=== PATIENT | female | born 1950 | race Caucasian/White ===

== ENCOUNTER 2016-07-30 17:31 | Outpatient (CLI) | payer OTHER, MEDICARE ==
[2016-07-30] MEDS ORDERED: IOPAMIDOL-300 50 ML VIAL PO ONE (18:54)
[2016-07-30] MEDS ORDERED: IOPAMIDOL-300 100 ML VIAL IVP ONE (18:54)
== END 2016-07-30 17:32 | disposition home or self-care (01) ==
DX: D35.02 Benign neoplasm of left adrenal gland (principal); N13.30 Unspecified hydronephrosis; N20.0 Calculus of kidney; K76.89 Other specified diseases of liver; K57.30 Diverticulosis of large intestine without perforation or abscess without bleeding; N32.89 Other specified disorders of bladder
CPT/HCPCS: 74177; Q9967

== ENCOUNTER 2016-12-10 08:00 | Outpatient (CLI) | payer OTHER, MEDICARE | END 2016-12-10 08:01 | disposition home or self-care (01) | LOC: LAB.R 08:00 | PROVIDERS: ATTEND Physician Assistant Medical | DX: R31.9 Hematuria, unspecified (principal) | CPT/HCPCS: 87086 ==

== ENCOUNTER 2016-12-13 09:27 | Outpatient (CLI) | payer OTHER, MEDICARE ==
--- NOTE | 2016-12-13 11:03 | XRAY Report ---
TWO-VIEW LUMBAR SPINE: 12/13/2016 CLINICAL INDICATION: Right hip pain, sciatica. FINDINGS: Frontal and lateral views of the lumbar spine demonstrate mild degenerative disc and facet disease. There is no evidence of compression fracture. Minimal levoscoliosis is present, likely de generative in etiology. IMPRESSION: MILD DEGENERATIVE CHANGES, WITH MINIMAL LEVOSCOLIOSIS. JOB #: [id number] EXT JOB #:[id number]
--- NOTE | 2016-12-13 11:05 | XRAY Report ---
RIGHT HIP AND PELVIS: 12/13/2016 CLINICAL INDICATION: Right hip pain. FINDINGS: Frontal view of the hips and pelvis and frogleg lateral view of the right hip demonstrate mild osteoarthritis. There is no evidence of fracture or dislocation. No radiopaque foreign body is seen in the soft tissues. IMPRESSION: MILD RIGHT HIP OSTEOARTHRITIS. JOB #: [id number] EXT JOB #:[id number]
== END 2016-12-13 09:28 | disposition home or self-care (01) ==
LOC: DI 09:27
PROVIDERS: ATTEND Physician Assistant Medical
DX: M51.36 Other intervertebral disc degeneration, lumbar region (principal); M47.896 Other spondylosis, lumbar region; M41.86 Other forms of scoliosis, lumbar region; M16.11 Unilateral primary osteoarthritis, right hip
CPT/HCPCS: 72100

== ENCOUNTER 2017-07-01 10:20 | Outpatient (CLI) | payer OTHER, MEDICARE | END 2017-07-01 10:21 | disposition home or self-care (01) | LOC: LAB.R 10:20 | PROVIDERS: ATTEND Physician Assistant Medical | DX: N39.0 Urinary tract infection, site not specified (principal) | CPT/HCPCS: 87086 ==

== ENCOUNTER 2018-03-23 13:45 | Outpatient (CLI) | payer OTHER, MEDICARE ==
[2018-03-23 18:58] LABS: BASOPHILS % (AUTO) 0.5 %; EOSINOPHILS % (AUTO) 0.7 %; HGB - HEMOGLOBIN 13.3 g/dL (12.0-16.0); LYMPHOCYTES # (AUTO) 1.6 10^3/uL (1.5-3.5); LYMPHOCYTES % (AUTO) 21.9 %; MEAN CORPUSCULAR HEMOGLOBIN 28.2 pg (27.0-31.0); MEAN CORPUSCULAR HGB CONC 33.3 g/dL (32.0-36.0); MEAN CORPUSCULAR VOLUME 84.7 fL (81.0-99.0); MEAN PLATELET VOLUME 8.1 fL (7.9-10.8); MONOCYTES # (AUTO) 0.5 10^3/uL (0.0-1.0); MONOCYTES % (AUTO) 7.7 %; NEUTROPHILS % (AUTO) 69.2 %; PLT - PLATELET COUNT 302 10^3/uL (130-450); RED BLOOD COUNT 4.69 10^6/uL (4.20-5.40); RED CELL DISTRIBUTION WIDTH 13.4 % (12.0-15.0); WHITE BLOOD COUNT 7.1 x10^3/uL (4.8-10.8)
[2018-03-23 19:17] LABS: ALBUMIN/GLOBULIN RATIO 1.3 (1.0-2.2); ALKALINE PHOSPHATASE 60 IU/L (42-121); ALT ALANINE AMINOTRANSFERASE 12 IU/L (10-60); AST ASPARTATE AMINOTRANSFERASE 18 IU/L (10-42); BILIRUBIN,TOTAL 0.5 mg/dL (0.2-1.0); BUN - BLOOD UREA NITROGEN 11 mg/dL (6-20); CARBON DIOXIDE - CO2 27 mmol/L (21-32); CHLORIDE 105 mmol/L (101-111); CHOL/HDL RATIO 2.5 (<4.4); CHOLESTEROL 159 mg/dL; CREATININE 0.6 mg/dL (0.4-1.0); GFR - MDRD 100 (>89); GLUCOSE 96 mg/dL (70-100); HDL CHOLESTEROL 64 mg/dL; LDL CHOLESTEROL,CALCULATED 79 mg/dL; LDL/HDL RATIO 1.2 (<4.4); SODIUM 141 mmol/L (135-145); TOTAL PROTEIN 7.1 g/dL (6.7-8.2); VLDL CHOLESTEROL 16 mg/dL
== END 2018-03-23 13:46 | disposition home or self-care (01) ==
LOC: LAB.WCP 13:45
PROVIDERS: ATTEND Physician Assistant Medical
DX: Z00.00 Encounter for general adult medical examination without abnormal findings (principal)
CPT/HCPCS: 36415; 80053; 80061; 83721; 84443; 85025

== ENCOUNTER 2019-03-05 07:50 | Outpatient (CLI) | payer OTHER, MEDICARE ==
--- NOTE | 2019-03-08 15:44 | Mammography Report ---
Reason: SCREENING MAMMO Procedure Date: 03/05/2019 Accession Number: [id number] / [id number] Procedure: CARLA - Screening Mammo w/Arturo CPT Code: FULL RESULT: EXAM: Screening Mammo w/Arturo DATE: 03/05/2019 8:40 AM CLINICAL HISTORY: Routine screening TECHNIQUE: (B) - Bilateral CC and MLO views were obtained. COMPARISON: 01/19/2016, 10/04/2014, 02/02/2014 and 05/12/2013 PARENCHYMAL PATTERN: (D) - The breasts demonstrate heterogeneously dense fibroglandular parenchyma bilaterally. FINDINGS: No significant interval change. There are no suspicious masses, calcifications, or areas of distortion. Scattered benign-appearing calcifications are stable. IMPRESSION: Negative examination. BI-RADS category 1. RECOMMENDATION: (ANNUAL) - Recommend routine annual screening mammography. BI-RADS CATEGORY: (1) - Negative. STANDARD QUALIFYING STATEMENTS: 1. This examination was not reviewed with the aid of Computer-Aided Detection (CAD). 2. A negative or benign imaging report should not preclude biopsy if clinically suspicious findings are present. 3. Dense breasts may obscure an underlying neoplasm. 4. This examination was reviewed with the aid of 3D breast imaging (tomosynthesis).
== END 2019-03-05 07:51 | disposition home or self-care (01) ==
LOC: DI 07:50
DX: Z12.31 Encounter for screening mammogram for malignant neoplasm of breast (principal)
CPT/HCPCS: 77063; 77067

== ENCOUNTER 2019-03-05 07:52 | Outpatient (CLI) | payer OTHER, MEDICARE ==
--- NOTE | 2019-03-08 11:43 | DEXA Report ---
Reason: POSTMENOPAUSAL STATUS Procedure Date: 03/05/2019 Accession Number: [id number] / [id number] Procedure: DEX - Dexa Spine and/or Hip CPT Code: FULL RESULT: EXAM: Dexa Spine and/or Hip DATE: 03/05/2019 9:02 AM CLINICAL HISTORY: POSTMENOPAUSAL STATUS. Follow-up osteopenia. TECHNIQUE: Dual energy x-ray absorptiometry (DXA) was performed on a [employer] System. Regions measured are the AP Spine, femoral neck, and if needed forearm. COMPARISON: 10/23/2015. In accordance with the International Society for Clinical Densitometry (ISCD) guidelines, data from previous exams may be reanalyzed using current recommendations and techniques. This is done to allow a more accurate basis for comparison with the current study. FINDINGS: The data for the lumbar spine is as follows: BMD (g/cm/cm) T-SCORE Z-SCORE REGION L1 0.942 -1.6 -0.5 L2 0.977 -1.9 -0.9 L3 0.941 -2.2 -1.2 L4 1.025 -1.5 -0.5 TOTAL 0.974 -1.7 -0.7 NOTE: All evaluable vertebrae are used for classification The data for the hip is as follows: BMD (g/cm/cm) T-SCORE Z-SCORE REGION Neck 0.724 -2.3 -1.6 TOTAL 0.799 -1.7 -1.3 NOTE: The femoral neck or total proximal femur, whichever is lowest, is used for classification. IMPRESSION: THE WHO CLASSIFICATION BASED ON THE INTERNATIONAL REFERENCE STANDARD IS OSTEOPENIA, REFERENCE LEFT FEMORAL NECK. THE FRACTURE RISK IS INCREASED. RECOMMENDATION: Patients with diagnosis of osteoporosis or osteopenia should have regular bone mineral density assessment. For those eligible for Medicare, routine testing is allowed once every 2 years. Testing frequency can be increased for patients who have rapidly progressing disease or for those who are receiving medical therapy to restore bone mass. COMMENT: World Health Organization (WHO) definitions for osteoporosis and osteopenia: NORMAL BMD: T-score at -1.0 or higher, fracture risk is low OSTEOPENIA BMD: T-score between -1.0 and -2.5, fracture risk is increased. OSTEOPOROSIS BMD: T-score at -2.5 or lower, fracture risk is high. National Osteoporosis Foundation recommends: 1. Obtain adequate dietary calcium (at least 1200 mg per day) and vitamin D (400-800 international units per day). 2. Participate, as appropriate, in regular weightbearing and muscle-strengthening exercise. 3. Avoid tobacco use and reduce alcohol and caffeine intake. 4. For more detailed information see the website at www.NOF.org.
== END 2019-03-05 07:53 | disposition home or self-care (01) ==
LOC: DI 07:52
PROVIDERS: ATTEND Physician Assistant Medical
DX: M85.89 Other specified disorders of bone density and structure, multiple sites (principal)
CPT/HCPCS: 77080

== ENCOUNTER 2019-05-01 07:14 | Outpatient (CLI) | payer OTHER, MEDICARE ==
--- NOTE | 2019-05-02 04:44 | Ultrasound Report ---
Reason: ABDOMINAL PAIN Procedure Date: 05/01/2019 Accession Number: [id number] / [id number] Procedure: US - Aorta Screening CPT Code: Final Report FULL RESULT: EXAM: AORTIC DOPPLER ULTRASOUND EXAM DATE: 05/01/2019 08:05 AM. CLINICAL HISTORY: Generalized abdominal pain since March 2019. COMPARISON: ABDOMEN/PELVIS W/ 07/30/2016 6:37 PM. TECHNIQUE: Real-time sonographic imaging of retroperitoneal vascular structures, including color-flow, Doppler flow and spectral analysis was performed by the process control manager. Multiple client representative static images were saved for review. FINDINGS: Aorta: There is calcific atherosclerosis cyst at the origin of the superior mesenteric artery. Distal abdominal aortic calcific atherosclerosis. Aorta is normal in caliber. Proximal aorta measures 2.6 cm, midportion of the aorta measures 1.9 cm, and the distal portion of the aorta measures 1.5 cm in diameter. Iliac Vessels: Bilateral common iliac arteries are normal in caliber, measuring 9 mm. There is mild to moderate calcific atherosclerosis of the common iliacs. Other: None. IMPRESSION: 1. No aortic aneurysm. 2. Mild to moderate calcific atherosclerosis. RADIA
== END 2019-05-01 07:15 | disposition home or self-care (01) ==
LOC: DI 07:14
PROVIDERS: ATTEND Nurse Practitioner Gerontology
DX: R10.9 Unspecified abdominal pain (principal); I70.8 Atherosclerosis of other arteries
CPT/HCPCS: 76706

== ENCOUNTER 2019-06-16 14:36 | Outpatient (CLI) | payer OTHER, MEDICARE ==
[2019-06-16] MEDS ORDERED: IOVERSOL 320 50 ML VIAL ONE (14:39)
[2019-06-16] MEDS ORDERED: IOVERSOL 320 100 ML VIAL IVP ONE ×2 (14:39→18:37)
[2019-06-16 15:17] LABS: CREATININE 0.8 mg/dL (0.4-1.0)
[2019-06-16] MEDS ORDERED: IOVERSOL 320 50 ML VIAL PO ONE (18:37)
--- NOTE | 2019-06-19 10:41 | CT Report ---
Reason: CONSTIPATION DUE TO SLOW TRANSIT, WEIGHT LOSS Procedure Date: 06/16/2019 Accession Number: [id number] / [id number] Procedure: CT - Abdomen/Pelvis W CPT Code: Final Report FULL RESULT: EXAM: CT ABDOMEN AND PELVIS EXAM DATE: 06/16/2019 03:48 PM HISTORY: CONSTIPATION DUE TO SLOW TRANSIT, WEIGHT LOSS COMPARISON: ABDOMEN/PELVIS W/ 07/30/2016 6:37 PM TECHNIQUE: Routine helical CT imaging was performed through the abdomen and pelvis. IV contrast: 90 mL Optiray 320. Enteric contrast: Positive. Reconstructions: Coronal and sagittal. In accordance with CT protocol optimization, one or more of the following dose reduction techniques were utilized for this exam: automated exposure control, adjustment of mA and/or KV based on patient size, or use of iterative reconstructive technique. FINDINGS: LOWER CHEST: Unremarkable. SOLID ORGANS: Liver: Multiple well-defined low-density lesions most consistent with benign cysts measuring approximately 3-20 mm. No concerning lesions seen. Spleen: Unremarkable. Pancreas: Normal appearance. Adrenal glands: Stable 1.6 cm left adrenal nodule most consistent with a benign adenoma. Unremarkable right adrenal gland. Kidneys: Right kidney: - Multiple small low-density lesions most consistent with simple cysts, not significantly changed from prior. -Multiple calculi, nonobstructing, similar to previous exam with mid-level punctate and 4 mm calculi, mid to lower pole 3 mm calculus and 3 or 4 lower pole 2-5 mm calculi. Left kidney: - Upper pole nonobstructing 3 x 6 mm calculus. - Lower pole nonobstructing 5 mm calculus. - 3 mm upper pole angiomyolipoma. GALLBLADDER/BILE DUCTS: No significant abnormality. PERITONEAL CAVITY/BOWEL: Diffuse colonic diverticulosis without evidence of diverticulitis. Diverticula are more numerous at the distal descending and sigmoid colon segments. No abnormal bowel distention. No apparent focal inflammation. CENTRAL RETROPERITONEUM: Essentially unremarkable aorta. No aneurysm. No retroperitoneal lymphadenopathy. PELVIS: Unremarkable urinary bladder contour. No intravesicular calculi. Unremarkable uterine contour. The right ovary appears enlarged compared to the previous exam. It now measures 3.5 x 2.3 cm where as in the previous there was estimated at 1 x 2.6 cm. Consider ultrasound correlation for better assessment. OTHER: Skeleton: No significant skeletal abnormality. Abdominal wall: No significant abnormality. IMPRESSION: 1. Mildly prominent right ovary. Ultrasound assessment is recommended. 2. Multiple bilateral nonobstructing renal calculi, similar to the previous exam. 3. Stable hepatic cysts and left adrenal adenoma. 4. Moderately extensive colonic diverticulosis without evidence of diverticulitis. Mild stool burden. RADIA
== END 2019-06-16 14:37 | disposition home or self-care (01) ==
LOC: LAB 14:36
PROVIDERS: ATTEND Physician Assistant
DX: N83.8 Other noninflammatory disorders of ovary, fallopian tube and broad ligament (principal); N20.0 Calculus of kidney; Z87.442 Personal history of urinary calculi; K57.90 Diverticulosis of intestine, part unspecified, without perforation or abscess without bleeding; K76.89 Other specified diseases of liver; D35.02 Benign neoplasm of left adrenal gland; K59.01 Slow transit constipation; R63.4 Abnormal weight loss
CPT/HCPCS: 36415; 74177; 82565; Q9967

== ENCOUNTER 2019-07-19 15:17 | Outpatient (CLI) | payer OTHER, MEDICARE ==
--- NOTE | 2019-07-20 12:56 | Ultrasound Report ---
Reason: ABD PAIN, OVARIAN ABNL ON CT Procedure Date: 07/19/2019 Accession Number: [id number] / [id number] Procedure: US - Pelvic w/Transvaginal CPT Code: Final Report FULL RESULT: EXAM: PELVIC ULTRASOUND EXAM DATE: 07/19/2019 04:13 PM. CLINICAL HISTORY: ABD PAIN, OVARIAN ABNL ON CT. COMPARISON: ABDOMEN/PELVIS W/ 06/16/2019 3:43 PM. TECHNIQUE: Realtime transabdominal pelvic scan performed to identify the uterus and adnexa and as an overview of other pelvic structures, followed by transvaginal scan to provide greater detail of the uterus and adnexa, with static image documentation. FINDINGS: Uterus: 6.6 x 3 x 4.6 cm, volume 47 cc. Retroverted position. Normal overall size and echotexture. Masses: Right 3.2 x 2 x 2.7 cm intramural fibroid. Endometrium: 3.3 mm. Cystic changes Cervix: Unremarkable. Right Ovary: 3 x 1.1 x 1.5 cm, volume 2.5 cc. Normal echotexture and blood flow. Possible hydrosalpinx on transabdominal imaging 0.7 cm not seen on transvaginal imaging Left Ovary: 1.8 x 0.9 x 1 cm, volume 0.86 cc. Normal echotexture and blood flow. Possible hydrosalpinx 0.6 cm Free Fluid: None. Other: None. IMPRESSION: 1. Right ovary unremarkable. Possible right hydrosalpinx. 2. Left ovary unremarkable. Small left hydrosalpinx. 3. 3.2 cm fibroid RADIA
== END 2019-07-19 15:18 | disposition home or self-care (01) ==
LOC: DI 15:17
PROVIDERS: ATTEND Physician Assistant Medical
DX: N70.11 Chronic salpingitis (principal); D25.1 Intramural leiomyoma of uterus
CPT/HCPCS: 76830; 76856

== ENCOUNTER 2020-02-08 08:00 | Outpatient (CLI) | payer OTHER, MEDICARE ==
[2020-02-08 12:09] LABS: BASOPHILS % (AUTO) 0.4 %; EOSINOPHILS # (AUTO) 0.1 10^3/uL (0.0-0.7); EOSINOPHILS % (AUTO) 1.4 %; HGB - HEMOGLOBIN 12.9 g/dL (12.0-16.0); LYMPHOCYTES # (AUTO) 1.8 10^3/uL (1.5-3.5); LYMPHOCYTES % (AUTO) 22.3 %; MEAN CORPUSCULAR HEMOGLOBIN 28.4 pg (27.0-31.0); MEAN CORPUSCULAR HGB CONC 32.7 g/dL (32.0-36.0); MEAN CORPUSCULAR VOLUME 86.8 fL (81.0-99.0); MONOCYTES # (AUTO) 0.7 10^3/uL (0.0-1.0); NEUTROPHILS # (AUTO) 5.5 10^3/uL (1.5-6.6); NEUTROPHILS % (AUTO) 67.5 %; PLT - PLATELET COUNT 321 10^3/uL (130-450); RED BLOOD COUNT 4.54 10^6/uL (4.20-5.40); RED CELL DISTRIBUTION WIDTH 13.6 % (12.0-15.0); WHITE BLOOD COUNT 8.1 x10^3/uL (4.8-10.8)
[2020-02-08 12:32] LABS: ALBUMIN 3.5 g/dL (3.2-5.5); ALKALINE PHOSPHATASE 57 IU/L (42-121); ALT ALANINE AMINOTRANSFERASE 16 IU/L (10-60); AST ASPARTATE AMINOTRANSFERASE 19 IU/L (10-42); BILIRUBIN,TOTAL 0.4 mg/dL (0.2-1.0); BUN - BLOOD UREA NITROGEN 17 mg/dL (6-20); CALCIUM 9.2 mg/dL (8.5-10.3); CARBON DIOXIDE - CO2 29 mmol/L (21-32); CHLORIDE 106 mmol/L (101-111); CHOL/HDL RATIO 2.6 (<4.4); CHOLESTEROL 157 mg/dL; CREATININE 0.8 mg/dL (0.4-1.0); GLUCOSE 99 mg/dL (70-100); HDL CHOLESTEROL 61 mg/dL; LDL CHOLESTEROL,CALCULATED 81 mg/dL; LDL/HDL RATIO 1.3 (<4.4); SODIUM 141 mmol/L (135-145); VLDL CHOLESTEROL 15 mg/dL
== END 2020-02-08 23:59 ==
LOC: LAB.WCP 08:00
PROVIDERS: ATTEND Physician Assistant Medical
DX: Z00.00 Encounter for general adult medical examination without abnormal findings (principal)
CPT/HCPCS: 36415; 80053; 80061; 83721; 84443; 85025

== ENCOUNTER 2020-07-04 15:00 | Outpatient (CLI) | payer MEDICARE, OTHER ==
--- NOTE | 2020-07-04 17:12 | XRAY Report ---
PROCEDURE: Shoulder 2 View BILAT INDICATIONS: BILATERAL SHOULDER PAIN TECHNIQUE: 2 views of the shoulder were acquired. COMPARISON: None. FINDINGS: Bones: The acromioclavicular joints have mild degenerative changes. No fractures or dislocations. N o suspicious bony lesions. Visualized ribs appear intact. Soft tissues: No suspicious soft tissue calcifications. IMPRESSION: Mild degenerative changes of the acromioclavicular joint, otherwise normal shoulders. Reviewed by: Harpal Joseph on 07/04/2020 5:11 PM [facility] Approved by: Harpal Joseph on 07/04/2020 5:11 PM [facility] Station ID: [id number]
== END 2020-07-04 23:59 | disposition home or self-care (01) ==
LOC: DI.WCP 15:00
PROVIDERS: ATTEND Nurse Practitioner Family
DX: M19.012 Primary osteoarthritis, left shoulder (principal); M19.011 Primary osteoarthritis, right shoulder

== ENCOUNTER 2021-02-14 09:43 | Outpatient (CLI) | payer OTHER ==
--- NOTE | 2021-02-14 16:56 | MRI Report ---
PROCEDURE: Shoulder LT W/O INDICATIONS: LEFT SHOULDER STRAIN INJURY TECHNIQUE: Noncontrast oblique coronal T2 fast spin echo with fat saturation, oblique sagittal T1 spin echo and T2 fast spin echo with fat saturation, axial T1 spin echo and T2 fast spin echo with fat saturation t hrough the shoulder. COMPARISON: Plain films dated 07/04/2020. FINDINGS: Image quality: Excellent. Rotator cuff: There is mild T2 signal elevation within the mid and anterior supraspinatus tendon at t he humeral insertion site, indicating tendinopathy. Superimposed low-grade partial thickness intrasub stance and articular surface tearing of the mid and anterior supraspinatus tendon at the humeral inse rtion site extending to the muscular tendinous junction. Infraspinatus, teres minor, and subscapulari s tendons are intact. Bones and bursae: No bone marrow contusions or fractures. Moderate acromioclavicular joint degenerat ion. The acromion demonstrates conventional anatomy, without an os acromiale. No pathologic subacro mial/subdeltoid bursal fluid is present. Capsule and soft tissues: In the absence of intra-articular contrast, the labrum and glenohumeral li gaments appear intact. The long head of the biceps tendon demonstrates normal location and morpholog y. The rotator interval appears normal, without fibrosis. The coracohumeral ligament is normal in t hickness. IMPRESSION: 1. Supraspinatus tendinopathy with superimposed low-grade partial thickness tears. 2. Acromioclavicular joint osteoarthritis. Reviewed by: Bella Quijano MD on 02/14/2021 4:55 PM PDT Approved by: Bella Quijano MD on 02/14/2021 4:55 PM PDT Station ID: [id number]
== END 2021-02-14 09:44 | disposition home or self-care (01) ==
LOC: DI 09:43
PROVIDERS: ATTEND Physician Assistant Medical
DX: S46.022A Laceration of muscle(s) and tendon(s) of the rotator cuff of left shoulder, initial encounter (principal); M19.012 Primary osteoarthritis, left shoulder

== ENCOUNTER 2022-05-31 13:37 | Outpatient (CLI) | payer OTHER, MEDICARE ==
--- NOTE | 2022-06-03 09:33 | Mammography Report ---
BILATERAL DIGITAL SCREENING MAMMOGRAM 3D/2D: 05/31/2022 CLINICAL: Routine screening. Comparison is made to exams dated: 03/05/2019 mammogram, 01/19/2016 mammogram, and 10/04/2014 mammogram - [facility]. There are scattered areas of fibroglandular density in both breasts (category b / 25%-50% glandular t issue). No significant masses, calcifications, or other findings are seen in either breast. There has been no significant interval change. IMPRESSION: NEGATIVE There is no mammographic evidence of malignancy. A 1 year screening mammogram is recommended. Based on the Tyrer Cuzick model (a risk assessment model) the patients lifetime risk is 6.7% and her 10 year risk is 4.6%. According to the ACR, ACS, and NCCN guidelines, an annual breast MRI exam abhijit g with mammogram is recommended if the patients lifetime risk is 20% or greater. This exam was interpreted at Station ID: [id number]. NOTE: For mammograms, a report in lay terms will be sent to the patient. Approximately 15% of breast malignancies will not be visualized mammographically. In the management of a palpable breast mass, a negative mammogram must not discourage biopsy of a clinically suspicious lesion. Electronically Signed By: Oliverio ovalles/rodriguez:05/31/2022 18:28:09 ACR BI-RADS Category 1: Negative 3341F PARENCHYMAL PATTERN: (A) - The breast(s) demonstrate(s) scattered fibroglandular densities. BI-RADS CATEGORY: (1) - 1 RECOMMENDATION: (ANNUAL) - Recommend routine annual screening mammography. [id number] 1 year screening LATERALITY: (B)
== END 2022-05-31 13:38 | disposition home or self-care (01) ==
LOC: DI 13:37
DX: Z12.31 Encounter for screening mammogram for malignant neoplasm of breast (principal)

== ENCOUNTER 2023-02-18 09:16 | Outpatient (CLI) | payer MEDICARE, OTHER ==
[2023-02-18 12:29] LABS: BASOPHILS % (AUTO) 0.4 %; EOSINOPHILS # (AUTO) 0.1 10^3/uL (0.0-0.7); EOSINOPHILS % (AUTO) 1.1 %; HGB - HEMOGLOBIN 13.1 g/dL (12.0-16.0); LYMPHOCYTES # (AUTO) 1.8 10^3/uL (1.5-3.5); LYMPHOCYTES % (AUTO) 21.8 %; MEAN CORPUSCULAR HEMOGLOBIN 28.1 pg (27.0-31.0); MEAN CORPUSCULAR HGB CONC 32.8 g/dL (32.0-36.0); MEAN CORPUSCULAR VOLUME 85.8 fL (81.0-99.0); MEAN PLATELET VOLUME 9.8 fL (7.9-10.8); MONOCYTES # (AUTO) 0.6 10^3/uL (0.0-1.0); MONOCYTES % (AUTO) 7.3 %; NEUTROPHILS # (AUTO) 5.8 10^3/uL (1.5-6.6); NEUTROPHILS % (AUTO) 69.2 %; PLT - PLATELET COUNT 347 10^3/uL (130-450); RED BLOOD COUNT 4.66 10^6/uL (4.20-5.40); RED CELL DISTRIBUTION WIDTH 12.8 % (12.0-15.0); WHITE BLOOD COUNT 8.4 x10^3/uL (4.8-10.8)
[2023-02-18 13:06] LABS: ALBUMIN 4.1 g/dL (3.2-5.5); ALBUMIN/GLOBULIN RATIO 1.3 (1.0-2.2); BILIRUBIN,TOTAL 0.4 mg/dL (0.2-1.0); CALCIUM 9.6 mg/dL (8.5-10.3); CREATININE 0.7 mg/dL (0.6-1.3); CRP - C-REACTIVE PROTEIN 0.6 mg/dL (<0.5); POTASSIUM 3.7 mmol/L (3.5-4.5); TOTAL PROTEIN 7.2 g/dL (6.4-8.9)
[2023-02-19 16:08] LABS: T-TRANSGLUTAMINASE (TTG) IGA <2 U/mL (0-3); T-TRANSGLUTAMINASE (TTG) IGG <2 U/mL (0-5)
[2023-02-19 18:08] LABS: ENDOMYSIAL IGA Negative (Negative)
[2023-02-19 20:07] LABS: CYCLIC CITRULLINATED PEP IGG/A 3 units (0-19)
== END 2023-02-18 09:17 | disposition home or self-care (01) ==
LOC: LAB.N 09:16
PROVIDERS: ATTEND Physician Assistant Medical
DX: K21.9 Gastro-esophageal reflux disease without esophagitis (principal); R10.9 Unspecified abdominal pain; G89.29 Other chronic pain
CPT/HCPCS: 36415; 80053; 85025; 85651; 86140; 86200; 86231; 86364

== ENCOUNTER 2023-03-04 16:23 | Outpatient (CLI) | payer MEDICARE, OTHER ==
--- NOTE | 2023-03-05 11:47 | Ultrasound Report ---
PROCEDURE: Pelvic w/Transvaginal INDICATIONS: ABDOMINAL PAIN TECHNIQUE: Real-time scanning was performed of the pelvic organs, with image documentation. Additional endovagi nal scanning was necessary due to incomplete visualization of the adnexal and endometrial structures by transabdominal scanning. COMPARISON: 07/19/2019 FINDINGS: Uterus: 6.4 x 3.4 x 4.5 cm. Endometrium is 6 mm, slightly thickened and heterogeneous, with small flu id containing portions. Retroverted positioning. Right anterior intramural fibroid measures up to 3.3 x 3 cm, possible slight enlargement versus techn ical measurement differences. Ovaries: Atrophic bilateral ovaries measuring less than 1 cc in volume. Other: Possible trace bilateral hydrosalpinx versus adnexal fluid. IMPRESSION: No acute abnormality. Mildly thickened endometrium with heterogeneity and small fluid components. Please correlate with any history of bleeding and consider gynecologic consultation for sampling. Possible mild bilateral hydrosalpinx versus adnexal fluid. Reviewed by: Luis Fernando Nogueira MD on 03/05/2023 11:45 AM PDT Approved by: Luis Fernando Nogueira MD on 03/05/2023 11:45 AM PDT Station ID: [id number]
== END 2023-03-04 16:24 | disposition home or self-care (01) ==
LOC: DI 16:23
PROVIDERS: ATTEND Physician Assistant Medical
DX: R10.9 Unspecified abdominal pain (principal); R93.89 Abnormal findings on diagnostic imaging of other specified body structures

== ENCOUNTER 2023-04-15 08:29 | Outpatient (CLI) | payer MEDICARE, OTHER ==
--- NOTE | 2023-04-15 13:18 | Ultrasound Report ---
PROCEDURE: Pelvic w/Transvaginal INDICATIONS: THICKENED ENDOMETRIUM TECHNIQUE: Transabdominal/transvaginal ultrasound of the pelvis was obtained. Endovaginal scanning wa s necessary due to incomplete visualization of the adnexal and endometrial structures by transabdomin al scanning. COMPARISON: 03/04/2023 FINDINGS: Uterine size: Uterus measures 6.5 x 3.2 x 4.5 cm, and is retroverted Myometrium: The myometrium is homogeneous. Right anterior intramural fibroid 3.5 x 2.4 x 2.8 cm Endometrium: The endometrium measures 4.2 mm in combined thickness. Echotexture is heterogenous, sim ilar to prior Right ovary: The right ovary measures 2.9 x 1.0 x 1.1 cm. Calculated ovarian volume 1.8 cc. Left ovary: The left ovary measures 2.1 x 0.9 x 1.4 cm. Calculated ovarian volume 1.6 cc. Mild adne xal fluid IMPRESSION: Stable heterogenous endometrium without significant thickening. Intramural fibroid, unchanged. Left adnexal free fluid, similar to prior Reviewed by: Christophe Cohen MD on 04/15/2023 12:16 PM [facility] Approved by: Christophe Cohen MD on 04/15/2023 12:16 PM [facility] Station ID: [id number]
== END 2023-04-15 08:30 | disposition home or self-care (01) ==
LOC: DI 08:29
PROVIDERS: ATTEND Obstetrics & Gynecology
DX: N85.00 Endometrial hyperplasia, unspecified (principal); D25.1 Intramural leiomyoma of uterus

== ENCOUNTER 2023-05-28 12:38 | Outpatient (CLI) | payer MEDICARE, OTHER ==
[2023-05-28 18:52] LABS: CREATININE 0.7 mg/dL (0.6-1.3)
== END 2023-05-28 12:39 | disposition home or self-care (01) ==
LOC: LAB.N 12:38
PROVIDERS: ATTEND Physician Assistant Medical
DX: R59.0 Localized enlarged lymph nodes (principal)
CPT/HCPCS: 36415; 82565

== ENCOUNTER 2023-05-29 10:10 | Outpatient (CLI) | payer MEDICARE, OTHER ==
[2023-05-29] MEDS ORDERED: iohexoL-300 100 ML VIAL IVP ONE (10:43)
--- NOTE | 2023-05-29 14:27 | CT Report ---
PROCEDURE: SOFT TISSUE NECK W INDICATIONS: CERVICAL LYMPHADENOPATHY CONTRAST: 100ml omni 300 TECHNIQUE: After the administration of intravenous contrast, 3.0 mm axial sections acquired from the sella to th e aortic arch. Additional oblique axial 3.0 mm sections acquired through the pharynx. 3 mm thick co wiley reformats were generated. For radiation dose reduction, the following was used: automated exp osure control, adjustment of mA and/or kV according to patient size. COMPARISON: None. FINDINGS: Image quality: Excellent. Lymph nodes: Enlarged intraparotid lymph nodes are noted within the parotid glands bilaterally. On t he right the largest lymph node measures 1.9 x 1.1 cm. On the left the largest lymph node measures 1. 1 x 0.9 cm. No other enlarged lymph nodes seen throughout the neck. Vessels: Visualized vasculature appears patent. Neck spaces: The oropharynx, nasopharynx, and pharynx demonstrate no mucosal lesions. The vocal cor ds, false vocal cords, pyriform sinuses, epiglottis, vallecula, and tongue base all appear normal. E xtramucosal spaces appear unremarkable. Glands: The parotid and submandibular glands appear normal. The left thyroid gland has a 1.2 cm nod ule. Miscellaneous: Visualized brain and orbits appear normal. Lung apices have centrilobular emphysemat ous changes and appear clear. Superficial soft tissues appear normal. Bones: No suspicious bony lesions. The right maxillary sinus is opacified. There is bony reactive th ickening. IMPRESSION: 1. Enlarged intraparotid lymph nodes bilaterally. No other cervical adenopathy. 2. 1.2 cm left thyroid nodule. In patients "e35 years with an incidental thyroid nodule detected on CT, MRI, or extrathyroidal ultrasound, the guidelines recommend further evaluation with dedicated thy roid ultrasound if the nodule is "e1.5 cm and has no suspicious imaging features, and if the patient has normal life expectancy. Therefore no specific follow-up for this nodule is recommended. Reviewed by: Harpal Joseph on 05/29/2023 1:25 PM [facility] Approved by: Harpal Joseph on 05/29/2023 1:25 PM [facility] Station ID: [id number]
== END 2023-05-29 10:11 | disposition home or self-care (01) ==
LOC: DI 10:10
PROVIDERS: ATTEND Physician Assistant Medical
DX: R59.0 Localized enlarged lymph nodes (principal); E04.1 Nontoxic single thyroid nodule
CPT/HCPCS: 70491; Q9967

== ENCOUNTER 2023-06-18 09:52 | Outpatient (CLI) | payer MEDICARE, OTHER ==
[2023-06-18] MEDS ORDERED: LIDOCAINE-MPF 1% 5 ML VIAL ONE (11:02)
--- NOTE | 2023-06-18 16:19 | Ultrasound Report ---
PROCEDURE: Needle Bx Lymph Node INDICATIONS: CERVICAL LYMPHADENOPATHY TECHNIQUE: The indications, alternatives, benefits, risks, and complications of the procedure were e xplained to the patient. Written informed consent was obtained and placed in the chart. Real-time sonography was utilized to choose the site for percutaneous lymph node sampling. The skin was prepped and draped in the usual sterile fashion. 1% lidocaine was infiltrated down to the site o f interest. An 18-gauge [employer] biopsy device with introducer was advanced to the right cervical lymph node under direct sonographic visualization. 4 core samples were obtained. The device was the n withdrawn; a bandage was applied to the procedure site. COMPARISON: CT soft tissue neck 05/29/2023 FINDINGS: Sample site(s): Right level 1 cervical lymph node Needle: 18-gauge Number of passes: 4 core samples were obtained, 2 of which were placed in RPMI and 2 cores were plac ed in formalin solution Medications: 1% lidocaine for local anaesthesia. Complications: None. IMPRESSION: Successful ultrasound-guided right cervical lymph node biopsy with pathology results pending. Reviewed by: Gabriela Padilla MD on 06/18/2023 4:18 PM PST Approved by: Gabriela Padilla MD on 06/18/2023 4:18 PM PST Station ID: [id number]
[2023-06-18] MEDS ORDERED: LIDOCAINE-MPF 1% 5 ML VIAL TD ONE (17:00)
== END 2023-06-18 09:53 | disposition home or self-care (01) ==
LOC: DI 09:52
PROVIDERS: ATTEND Physician Assistant Medical
DX: D11.0 Benign neoplasm of parotid gland (principal)
CPT/HCPCS: 38505

== ENCOUNTER 2023-12-04 11:40 | Outpatient (CLI) | payer MEDICARE, OTHER ==
--- NOTE | 2023-12-04 19:08 | XRAY Report ---
PROCEDURE: Wrist 3+V RT INDICATIONS: PAIN IN RIGHT WRIST TECHNIQUE: 3 views of the wrist were acquired. COMPARISON: None. FINDINGS: Bones: No fractures or dislocations. No suspicious bony lesions. Soft tissues: No suspicious soft tissue calcifications or masses. IMPRESSION: No visualized acute fracture or dislocation. However, occult injury cannot be excluded. Recommend leonel rt interval imaging follow-up in 7-10 days as clinically indicated for additional evaluation. Reviewed by: Kristy Santacruz MD on 12/04/2023 7:07 PM PDT Approved by: Kristy Santacruz MD on 12/04/2023 7:07 PM PDT Station ID: [id number]
--- NOTE | 2023-12-04 19:11 | XRAY Report ---
PROCEDURE: Hand 3+V LT INDICATIONS: CONTUSION OF LEFT HAND TECHNIQUE: 3 views of the hand(s) acquired. COMPARISON: None FINDINGS: Bones: There is an ill-defined appearance of lucency in the lateral aspect of the hamate. It is see n only on one view. No suspicious bony lesions. Mild scattered Soft tissues: No suspicious soft tissue calcifications or masses. IMPRESSION: Lateral hamate lucency seen only on one view. Finding is suspicious for fracture. Recommend correlati on point tenderness and short interval imaging follow-up in 7-10 days. Reviewed by: Kristy Santacruz MD on 12/04/2023 7:10 PM PDT Approved by: Kristy Santacruz MD on 12/04/2023 7:10 PM PDT Station ID: [id number]
--- NOTE | 2023-12-04 21:13 | XRAY Report ---
PROCEDURE: Knee 1-2V RT INDICATIONS: ABRASION, RIGHT KNEE TECHNIQUE: 2 views of the knee(s) were acquired. COMPARISON: None. FINDINGS: Bones: No fractures or dislocations. Mild to moderate tricompartmental osteoarthritis is seen more n otably in medial femoral tibial compartment. No suspicious bony lesions. Soft tissues: No knee joint effusion. No suspicious soft tissue calcifications or masses. IMPRESSION: No acute bony abnormality. Mild to moderate tricompartmental osteoarthritis. No significant joint effusion. Reviewed by: Parth Dickson MD on 12/04/2023 9:11 PM PDT Approved by: Parth Dickson MD on 12/04/2023 9:11 PM PDT Station ID: [id number]
== END 2023-12-04 12:56 | disposition home or self-care (01) ==
LOC: DI.N 11:40
PROVIDERS: ATTEND Physician Assistant Medical
DX: S80.211A Abrasion, right knee, initial encounter (principal); M17.11 Unilateral primary osteoarthritis, right knee; S60.222A Contusion of left hand, initial encounter; R93.6 Abnormal findings on diagnostic imaging of limbs; M25.531 Pain in right wrist

== ENCOUNTER 2023-12-30 13:50 | Outpatient (CLI) | payer MEDICARE, OTHER ==
--- NOTE | 2023-12-30 14:34 | XRAY Report ---
PROCEDURE: Wrist 3+V RT INDICATIONS: PAIN IN RIGHT WRIST TECHNIQUE: 4 views of the wrist were acquired. COMPARISON: 12/04/2023. FINDINGS: Bones: There is osteopenia. No acute fracture or dislocation. Mild wrist joint osteoarthritic change s are seen. No radiographic evidence of avascular necrosis. No suspicious bony lesions. Soft tissues: No suspicious soft tissue calcifications or masses. IMPRESSION: Mild right wrist joint osteoarthritis. No fracture or dislocation. No suspicious bony lesions. Reviewed by: Parth Griffin MD on 12/30/2023 2:33 PM PDT Approved by: Parth Griffin MD on 12/30/2023 2:33 PM PDT Station ID: [id number]
== END 2023-12-30 13:51 | disposition home or self-care (01) ==
LOC: DI 13:50
PROVIDERS: ATTEND Physician Assistant Medical
DX: M19.031 Primary osteoarthritis, right wrist (principal)